=== PATIENT | male | born 1980 | race African-American/Black ===

== ENCOUNTER → 2017-01-12 | Outpatient (CLI) | payer OTHER ==
--- NOTE | 2017-01-12 16:13 | KCIC ---
History: Left knee pain, pain started this summer after jogging. Comparison: None. Findings: AP and 2 lateral views of the left knee. Evaluation for acute traumatic injury is limited by lack of 3rd view. No joint effusion is seen. Mild lateral compartment degeneration is seen with marginal osteophyte formation. Moderate patellofemoral and medial compartment degeneration is seen with marginal osteophyte formation and some loss of joint space. Fragmentation at the tibial tubercle is seen, compatible with old [place]. Impression: 1. Limited evaluation for acute traumatic injury. 2. No acute osseous abnormality identified. 3. 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 Electronically signed by: Low Talbert MD (01/12/2017 4:10 PM) [place] [id number]
== END | disposition home or self-care (01) ==
LOC: KCIC 15:47
PROVIDERS: ATTEND Family Medicine
DX: S89.92XA Unspecified injury of left lower leg, initial encounter (principal); X58.XXXA Exposure to other specified factors, initial encounter; Y93.89 Activity, other specified; Y92.89 Other specified places as the place of occurrence of the external cause; Y99.8 Other external cause status
CPT/HCPCS: 73560